=== PATIENT | male | born 1980 | race Caucasian/White ===

== ENCOUNTER 2022-01-29 14:49 | Emergency (ER) | payer BC, SELFPAY ==
--- NOTE | 2022-01-29 14:50 | ED.SKABFB ---
HPI - Skin/Abscess/Foreign Bdy General Chief complaint: Skin/Abscess/Foreign Body Stated complaint: spot on stomach Time Seen by Provider: 01/29/22 14:52 Source: patient and RN notes reviewed History of Present Illness HPI narrative: Patient is a 41-year-old male who presents the urgent care with complaints of a sore to the abdomen. Patient states that he noticed the sore yesterday. Patient states his mom is a nurse practitioner and states that it needs to be drained. Patient does shave his abdomen. Denies of any fevers, nausea, vomiting. Patient has not done anything [id number] for his symptoms. No acute distress noted. Patient aware of the plan of care. Some parts of this dictation were generated by voice recognition software and may contain typographical and/or grammatical inaccuracies. Related Data Allergies Allergy/AdvReac Type Severity Reaction Status Date / Time No Known Allergies Allergy Verified 01/29/22 15:17 Review of Systems Review of Systems: CONSTITUTIONAL: Denies fever, chills, or sweats. EYES: Denies visual changes, redness, or discharge. ENT: Denies rhinorrhea, congestion, sore throat, or otalgia. CARDIOVASCULAR: Denies chest pain, palpitations, or edema. RESPIRATORY: Denies cough or dyspnea. GASTROINTESTINAL: Denies abdominal pain, nausea, vomiting, or diarrhea. GENITOURINARY: Denies dysuria or hematuria. SKIN: Reports an abscess to the abdomen MUSCULOSKELETAL: Denies back pain, joint pain, or myalgia. NEUROLOGIC: Denies headache, numbness, or weakness. All other systems reviewed are negative, except as documented in HPI. PMFSH Comments At the time of my signature, I reviewed and agree with the nursing past medical, surgical, social, and family history. There is no relevant family history pertinent to the patient complaint. Exam Narrative: GENERAL: This is a well-nourished, well-developed patient, in no apparent distress. HEAD: normocephalic, atraumatic. EYES: PERRL. Sclera clear/white. Vision is grossly intact. EARS: External ears normal NOSE: External nose normal with no obvious nasal discharge, nares without redness, no rhinorrhea. THROAT: Mucous membranes moist NECK: Neck supple CARDIOVASCULAR: Regular rate and rhythm without murmurs, gallops, or rubs. RESPIRATORY: Clear to auscultation. Breath sounds equal bilaterally. No wheezes, rales, or rhonchi. SKIN: 1.5 x 5 cm raised erythemic abscess to the abdomen on the right side of the umbilicus with moderate tenderness with a 6 x 6 nonfluctuant firmness. NEURO: awake, alert, and oriented to person, place and time. There were no obvious focal neurologic abnormalities. EXTREMITIES: No clubbing, cyanosis, or edema. Course Course Level of Care: Express Care Visit Vital Signs Vital signs: Vital Signs Temperature 98.6 F 01/29/22 14:56 Pulse Rate 82 01/29/22 14:56 Respiratory Rate 20 01/29/22 14:56 Blood Pressure 145/80 H 01/29/22 14:56 Pulse Oximetry 96 01/29/22 14:56 Oxygen Delivery Room Air 01/29/22 14:56 Temperature 98.6 F 01/29/22 14:56 Pulse Rate 82 01/29/22 14:56 Respiratory Rate 20 01/29/22 14:56 Blood Pressure 145/80 H 01/29/22 14:56 Pulse Oximetry 96 01/29/22 14:56 Oxygen Delivery Room Air 01/29/22 14:56 Reviewed-patient is informed that they may have pre-hypertension or hypertension based on a blood pressure reading in the department. I recommend the patient call the primary care provider listed on their discharge instructions or a physician of their choice this week to arrange follow-up for further evaluation of possible pre-hypertension or hypertension. Procedures Abscess I/D abdomen: Side (if applicable): right Local Anesthetic: none (Patient refused) Technique: incised with #11 blade Amount of fluid expressed (mL): 1 I&D Results: Pus and Blood Abcess I&D Additional Comments: Abscess to the right side of the umbilicus on the abdomen incised with a
[2022-01-29 14:56] VITALS: BP 145/80; PULSE 82; RESP 20; TEMP 37; O2SAT 96
== END 2022-01-29 15:45 | disposition home or self-care (01) ==
PROVIDERS: Emergency Provider Nurse Practitioner Family
DX: L02.211 Cutaneous abscess of abdominal wall (principal); L73.9 Follicular disorder, unspecified
CPT/HCPCS: 10060; 87070; 87205; 99213; G0463